=== PATIENT | male | born 1940 | race Caucasian/White ===

== ENCOUNTER → 2016-11-02 | Outpatient (CLI) | payer MEDICARE, BC ==
--- NOTE | 2016-11-02 10:26 | RAD ---
Renal ultrasound, 11/02/2016: History: Check post voiding residual urine in the bladder The right kidney measures 10.3 cm in length, while the left kidney measures 10.8 cm. There is no evidence of hydronephrosis or a renal mass. The renal parenchymal echogenicity is within normal limits. Limited views of the urinary bladder show no abnormality. Prevoiding views demonstrated a volume of approximately 116 cc. There is only a small amount of post voiding residual urine in the bladder estimated at 7 cc. IMPRESSION: 1. No significant renal abnormality is detected. 2. Minimal post voiding residual urine in the bladder.
== END | disposition home or self-care (01) ==
LOC: US 08:42
PROVIDERS: ATTEND Internal Medicine Nephrology
DX: R35.1 Nocturia (principal); R39.198 Other difficulties with micturition
CPT/HCPCS: 76770

== ENCOUNTER → 2017-02-28 | Outpatient (CLI) | payer MEDICARE, BC ==
--- NOTE | 2017-02-28 09:24 | RAD ---
Chest, 2 views, 02/28/2017: History: Productive cough, fever Comparison is made to a study from 06/20/2013. There has been a previous median sternotomy. A right-sided transvenous pacemaker has been inserted with 3 leads extending into the heart. The heart size and pulmonary vascularity are normal. There is calcific plaquing of the aorta. There is minimal linear atelectasis or scarring in the left base. No pulmonary consolidation is seen. There is no evidence of pleural fluid. IMPRESSION: 1. Interval insertion of a right-sided transvenous pacemaker. 2. Minimal left basilar linear atelectasis or scarring.
== END | disposition home or self-care (01) ==
LOC: DXRADRC 09:01
PROVIDERS: ATTEND Physician Assistant
DX: R50.9 Fever, unspecified (principal); R05 Cough; I70.0 Atherosclerosis of aorta; Z95.0 Presence of cardiac pacemaker
CPT/HCPCS: 71020

== ENCOUNTER → 2017-05-04 | Outpatient (CLI) | payer MEDICARE, BC ==
[2017-05-04 12:02] LABS: BASO % 1 % (0-3); EOS # 0.2 x10^3/uL (0.0-0.7); EOS % 5 % (0-3); HEMATOCRIT 28.7 % (39.0-53.0); HEMOGLOBIN 9.7 g/dL (13.0-17.5); LYMPH # 1.2 x10^3/uL (1.0-4.8); LYMPH % 24 % (24-48); MEAN CORPUSCULAR HEMOGLOBIN 34 pg (25-35); MEAN CORPUSCULAR HGB CONC 34 g/dL (31-37); MEAN CORPUSCULAR VOLUME 101 fL (79-100); MONO # 0.7 x10^3/uL (0.0-1.1); MONO % 14 % (0-9); NEUT # 2.7 x10^3uL (1.8-7.7); NEUT % 56 % (31-73); PLATELET COUNT 253 x10^3/uL (140-400); RED BLOOD COUNT 2.83 x10^6/uL (4.30-5.70); RED CELL DISTRIBUTION WIDTH 14.3 % (11.5-14.5); WHITE BLOOD COUNT 4.9 x10^3/uL (4.0-11.0)
[2017-05-04 12:08] LABS: BILIRUBIN,URINE NEG (NEG); CLARITY,URINE CLEAR; COLOR,URINE YELLOW; GLUCOSE,URINE NEG (NEG); NITRITE,URINE NEG (NEG); UROBILINOGEN,URINE 0.2 mg/dL (0.2 mg/dL)
[2017-05-04 12:21] LABS: ALBUMIN 3.6 g/dL (3.4-5.0); ALBUMIN/GLOBULIN RATIO 1.1 (1.0-1.7); CALCIUM 9.2 mg/dL (8.5-10.1); CREATININE 2.3 mg/dL (0.7-1.3); GFR 27.8; POTASSIUM 4.7 mmol/L (3.5-5.1); TOTAL BILIRUBIN 0.4 mg/dL (0.2-1.0)
[2017-05-04 22:07] LABS: HEMOGLOBIN A1C 6.2 % (4.8-5.6)
== END | disposition home or self-care (01) ==
LOC: LAB 11:15
PROVIDERS: ATTEND Physician Assistant Medical
DX: E11.9 Type 2 diabetes mellitus without complications (principal); I10 Essential (primary) hypertension; Z95.0 Presence of cardiac pacemaker
CPT/HCPCS: 36415; 80053; 81003; 83036; 85025

== ENCOUNTER → 2017-08-16 | Outpatient (CLI) | payer MEDICARE, BC ==
[2017-08-16 12:38] LABS: BASO % 1 % (0-3); EOS # 0.2 x10^3/uL (0.0-0.7); EOS % 4 % (0-3); HEMATOCRIT 28.4 % (39.0-53.0); HEMOGLOBIN 9.7 g/dL (13.0-17.5); LYMPH # 1.4 x10^3/uL (1.0-4.8); LYMPH % 28 % (24-48); MEAN CORPUSCULAR HEMOGLOBIN 34 pg (25-35); MEAN CORPUSCULAR HGB CONC 34 g/dL (31-37); MEAN CORPUSCULAR VOLUME 100 fL (79-100); MONO # 0.7 x10^3/uL (0.0-1.1); MONO % 15 % (0-9); NEUT # 2.7 x10^3uL (1.8-7.7); NEUT % 53 % (31-73); PLATELET COUNT 230 x10^3/uL (140-400); RED BLOOD COUNT 2.84 x10^6/uL (4.30-5.70); RED CELL DISTRIBUTION WIDTH 15.2 % (11.5-14.5)
[2017-08-16 13:00] LABS: CALCIUM 9.4 mg/dL (8.5-10.1); CREATININE 2.4 mg/dL (0.7-1.3); GFR 26.5; POTASSIUM 4.6 mmol/L (3.5-5.1)
[2017-08-19 11:29] LABS: HEMOGLOBIN A1C 6.6 % (4.8-5.6)
== END | disposition home or self-care (01) ==
LOC: LAB 12:00
PROVIDERS: ATTEND Physician Assistant Medical
DX: I13.0 Hypertensive heart and chronic kidney disease with heart failure and stage 1 through stage 4 chronic kidney disease, or unspecified chronic kidney disease (principal); E11.22 Type 2 diabetes mellitus with diabetic chronic kidney disease; N18.3 Chronic kidney disease, stage 3 (moderate); I50.9 Heart failure, unspecified
CPT/HCPCS: 36415; 80048; 83036; 85025

== ENCOUNTER → 2017-08-16 | Outpatient (CLI) | payer MEDICARE, BC ==
[2017-08-16 12:40] LABS: HEMATOCRIT 28.4 % (39.0-53.0); HEMOGLOBIN 9.7 g/dL (13.0-17.5)
[2017-08-16 12:54] LABS: ALBUMIN 3.5 g/dL (3.4-5.0); CALCIUM 9.4 mg/dL (8.5-10.1); CREATININE 2.4 mg/dL (0.7-1.3); GFR 26.5; MAGNESIUM 2.2 mg/dL (1.8-2.4); PHOSPHORUS 5.5 mg/dL (2.6-4.7); POTASSIUM 4.6 mmol/L (3.5-5.1)
[2017-08-17 03:17] LABS: UR CREATININE RD 20.9 mg/dL (Not Estab.); UR PROTEIN RD <4.0 mg/dL (Not Estab.)
[2017-08-17 07:16] LABS: CALCIUM PTH 9.7 mg/dL (8.6-10.2); CREATININE PTH 2.43 mg/dL (0.76-1.27); PTH INTACT 34 pg/mL (15-65)
== END | disposition home or self-care (01) ==
LOC: LAB 12:08
PROVIDERS: ATTEND Internal Medicine Nephrology
DX: I12.9 Hypertensive chronic kidney disease with stage 1 through stage 4 chronic kidney disease, or unspecified chronic kidney disease (principal); E11.22 Type 2 diabetes mellitus with diabetic chronic kidney disease; I13.0 Hypertensive heart and chronic kidney disease with heart failure and stage 1 through stage 4 chronic kidney disease, or unspecified chronic kidney disease; N18.3 Chronic kidney disease, stage 3 (moderate); I50.9 Heart failure, unspecified; Z95.0 Presence of cardiac pacemaker
CPT/HCPCS: 36415; 80069; 82570; 82728; 83540; 83550; 83735; 83970; 84156; 85014; 85018

== ENCOUNTER → 2017-11-11 | Outpatient (CLI) | payer MEDICARE, BC ==
[2017-09-23 11:06] VITALS: BP 157/78
--- NOTE | 2017-11-11 16:11 | RAD ---
CT UPPR EXTREMTY WO CONTRST RT Indication: Pain in shoulder. Pacemaker on right side Exposure: One or more of the following individualized dose reduction techniques were utilized for this examination: 1. Automated exposure control 2. Adjustment of the mA and/or kV according to patient size 3. Use of iterative reconstruction technique. Comparison: None are available. Contrast: None Acromioclavicular joint primary osteoarthritis with moderate undersurface osteophytes. Severe glenohumeral joint primary osteoarthritis. Severe narrowing of the anterior joint space. Subchondral cysts and marginal osteophytes. Mild bone hypertrophy and cystic changes at the greater tuberosity, likely due to chronic rotator cuff disease. Osteophytes encroach upon the bicipital groove. There is no evidence of an acute fracture or aggressive destructive bone lesion. No obvious acute soft tissue abnormality. Pacemaker device is partially seen. Cervical spine is barely seen, demonstrating degenerative change. IMPRESSION: 1. Severe glenohumeral joint primary osteoarthritis. 2. Acromioclavicular joint primary osteoarthritis. Electronically signed by: Da Castellanos MD (11/11/2017 4:08 PM) [facility]
== END | disposition home or self-care (01) ==
LOC: CT 08:17
PROVIDERS: ATTEND Anesthesiology Pain Medicine
DX: M19.011 Primary osteoarthritis, right shoulder (principal); M25.711 Osteophyte, right shoulder; I13.0 Hypertensive heart and chronic kidney disease with heart failure and stage 1 through stage 4 chronic kidney disease, or unspecified chronic kidney disease; E11.22 Type 2 diabetes mellitus with diabetic chronic kidney disease; I50.9 Heart failure, unspecified; N18.3 Chronic kidney disease, stage 3 (moderate); D63.1 Anemia in chronic kidney disease
CPT/HCPCS: 73200

== ENCOUNTER → 2018-05-13 | Outpatient (CLI) | payer MEDICARE, BC ==
[2017-09-23 11:06] VITALS: BP 157/78
--- NOTE | 2018-05-13 10:28 | RAD ---
Chest, 2 views, 05/13/2018: HISTORY: Cough Comparison is made to a study from 02/28/2017. There has been a previous median sternotomy. A right-sided transvenous pacing device remains in place with 3 leads extending into the heart. The heart size and pulmonary vascularity are normal. There is calcific plaquing of the aorta. There is minimal parenchymal scarring on the left. No acute infiltrate is seen. There is no evidence of pleural fluid. Mild spurring is present in the spine. IMPRESSION: No acute cardiopulmonary abnormality is detected. Electronically signed by: Helio Mohamud MD (05/13/2018 10:24 AM) [facility]
== END | disposition home or self-care (01) ==
LOC: RAD 09:54
PROVIDERS: ATTEND Physician Assistant Medical
DX: J40 Bronchitis, not specified as acute or chronic (principal); I70.0 Atherosclerosis of aorta; R91.8 Other nonspecific abnormal finding of lung field
CPT/HCPCS: 71046

== ENCOUNTER → 2018-05-30 | Outpatient (CLI) | payer MEDICARE, BC ==
[2017-09-23 11:06] VITALS: BP 157/78
--- NOTE | 2018-06-03 08:34 | RAD ---
DATE: 05/30/2018 4:00 PM EXAM: DIGITAL DIAGNOSTIC BILATERAL, BREAST BILATERAL HISTORY: Imaging evaluation of bilateral breast tenderness COMPARISON: None available Bilateral full field craniocaudal and mediolateral oblique images were obtained using digital technique. This study was interpreted with the benefit of Computerized Aided Detection (CAD ). Breast Density: The breast parenchyma is primarily fatty replaced. Breast parenchyma level density A. FINDINGS: Dense reticular and flame shaped retroareolar opacities are seen bilaterally. No suspicious masses, microcalcifications or architectural distortion is present to suggest malignancy in either breast. The visualized axillae are unremarkable. IMPRESSION: 1. Retroareolar opacities bilaterally are favored to represent gynecomastia. 2. No mammographic evidence of malignancy. Given the bilateral breast pain, dedicated ultrasound was performed Exam: Bilateral breast ultrasound TECHNIQUE: Targeted high resolution sonography of the region of clinical concern was performed. COMPARISON: Prior mammogram from 05/30/2018 FINDINGS: Bilateral retroareolar flame-shaped tissue is seen most consistent with gynecomastia. IMPRESSION: No sonographic evidence of malignancy. BI-RADS CATEGORY: 2 BENIGN FINDING(S) RECOMMENDED FOLLOW-UP: CLIN FOLLOW UP IMAGING CLINICALLY INDICATED Mammography is a sensitive method for finding small breast cancers, but it does not detect them all and is not a substitute for careful clinical examination. A negative mammogram does not negate a clinically suspicious finding and should not result in delay in biopsying a clinically suspicious abnormality. "Our facility is accredited by the [employer] Mammography Program." CHRISD
== END | disposition home or self-care (01) ==
LOC: MAMMO 13:50
PROVIDERS: ATTEND Physician Assistant Medical
DX: N64.4 Mastodynia (principal)
CPT/HCPCS: 76641; 77066

== ENCOUNTER → 2018-07-24 | Outpatient (CLI) | payer MEDICARE, BC ==
[2017-09-23 11:06] VITALS: BP 157/78
[~2018-07-24] MED LIST: BARIUM SULFATE 60% 355 ML SUSP PO ONE; BARIUM SULFATE 98% 135 ML SUSP PO ONE; SIMETHICONE/SOD BICARB/CITRIC ACID PACKET. PO ONE
--- NOTE | 2018-07-24 15:32 | RAD ---
ESOPHAGRAM 07/24/2018. Reason for study: Coughing with food getting stuck. Comparison studies: None. Technique: Esophagram was performed utilizing double contrast upright examination, single contrast prone examination, and cine evaluation of cervical esophageal swallow function. Fluoroscopy time: 1.6 minutes Images: 14 Findings: Right chest wall cardiac device is identified with leads projecting over the right atrium and right ventricle. Median sternotomy changes are present. Cardiomediastinal silhouette is within normal limits. Atherosclerotic changes of the thoracic aorta are present. Moderate degenerative changes of the right glenohumeral joint are noted. No pleural effusions. No pulmonary vascular congestion or pneumothorax. Barium swallow was performed without difficulty. Esophageal peristalsis and motility were normal. No mucosal abnormalities. No gastroesophageal reflux or hiatal hernia. There is a 2.5 cm esophageal diverticulum arising from the right lateral esophageal wall at the level of the mid thoracic esophagus there is prominence of the cricopharyngeus muscle which results in greater than 50 percent stenosis of the esophageal lumen. Fundus of the stomach was unremarkable. IMPRESSION: 1. 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 Consideration may be given for a pulsion diverticulum. 2. 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 Electronically signed by: Machelle Scott MD (07/24/2018 3:29 PM) [id number]
== END | disposition home or self-care (01) ==
LOC: RAD 08:10
PROVIDERS: ATTEND Internal Medicine Gastroenterology
DX: K22.5 Diverticulum of esophagus, acquired (principal); K22.2 Esophageal obstruction; I70.0 Atherosclerosis of aorta
CPT/HCPCS: 74220

== ENCOUNTER → 2018-09-24 | Outpatient (CLI) | payer MEDICARE, BC ==
[2017-09-23 11:06] VITALS: BP 157/78
[2018-09-24 16:24] LABS: HEMATOCRIT 30.9 % (39.0-53.0); HEMOGLOBIN 10.3 g/dL (13.0-17.5)
[2018-09-24 16:34] LABS: ALBUMIN 3.6 g/dL (3.4-5.0); CALCIUM 9.2 mg/dL (8.5-10.1); CREATININE 2.4 mg/dL (0.7-1.3); GFR 26.4; PHOSPHORUS 5.4 mg/dL (2.6-4.7); POTASSIUM 4.7 mmol/L (3.5-5.1)
== END | disposition home or self-care (01) ==
LOC: LAB 16:03
PROVIDERS: ATTEND Internal Medicine Nephrology
DX: I13.0 Hypertensive heart and chronic kidney disease with heart failure and stage 1 through stage 4 chronic kidney disease, or unspecified chronic kidney disease (principal); E11.29 Type 2 diabetes mellitus with other diabetic kidney complication; N18.3 Chronic kidney disease, stage 3 (moderate); I50.9 Heart failure, unspecified; D64.9 Anemia, unspecified; Z68.34 Body mass index [BMI] 34.0-34.9, adult
CPT/HCPCS: 36415; 80069; 82728; 83540; 83550; 85014; 85018

== ENCOUNTER → 2019-03-23 | Outpatient (CLI) | payer MEDICARE, BC ==
[2017-09-23 11:06] VITALS: BP 157/78
[2019-03-23 11:52] LABS: CALCIUM 9.3 mg/dL (8.5-10.1); CREATININE 2.1 mg/dL (0.7-1.3); GFR 30.7; POTASSIUM 4.4 mmol/L (3.5-5.1)
== END | disposition home or self-care (01) ==
LOC: LAB 07:56
PROVIDERS: ATTEND Internal Medicine Cardiovascular Disease
DX: I25.5 Ischemic cardiomyopathy (principal); I50.20 Unspecified systolic (congestive) heart failure; I25.810 Atherosclerosis of coronary artery bypass graft(s) without angina pectoris; N18.3 Chronic kidney disease, stage 3 (moderate); M79.89 Other specified soft tissue disorders
CPT/HCPCS: 36415; 80048; 83880

== ENCOUNTER → 2020-01-14 | Outpatient (CLI) | payer MEDICARE ==
[2017-09-23 11:06] VITALS: BP 157/78
[2020-01-14 15:34] LABS: CALCIUM 9.3 mg/dL (8.5-10.1); CREATININE 2.7 mg/dL (0.7-1.3); GFR 22.9; POTASSIUM 4.8 mmol/L (3.5-5.1)
== END | disposition home or self-care (01) ==
LOC: LAB 14:44
PROVIDERS: ATTEND Internal Medicine Cardiovascular Disease
DX: I25.5 Ischemic cardiomyopathy (principal)
CPT/HCPCS: 36415; 80048

== ENCOUNTER → 2020-02-09 | Outpatient (CLI) | payer MEDICARE ==
[2017-09-23 11:06] VITALS: BP 157/78
[2020-02-09 09:24] LABS: ALBUMIN 3.4 g/dL (3.4-5.0); ALBUMIN/GLOBULIN RATIO 1.1 (1.0-1.7); CALCIUM 8.9 mg/dL (8.5-10.1); CREATININE 2.3 mg/dL (0.7-1.3); GFR 27.6; POTASSIUM 4.7 mmol/L (3.5-5.1); TOTAL BILIRUBIN 0.5 mg/dL (0.2-1.0); TOTAL PROTEIN 6.6 g/dL (6.4-8.2)
== END ==
LOC: LAB 08:15
PROVIDERS: ATTEND Internal Medicine Cardiovascular Disease
DX: I50.20 Unspecified systolic (congestive) heart failure (principal)
CPT/HCPCS: 36415; 80053

== ENCOUNTER → 2020-02-09 | Outpatient (CLI) | payer MEDICARE ==
[2017-09-23 11:06] VITALS: BP 157/78
== END ==
LOC: LAB 08:23
PROVIDERS: ATTEND Internal Medicine Cardiovascular Disease
DX: I25.810 Atherosclerosis of coronary artery bypass graft(s) without angina pectoris (principal); N18.30 Chronic kidney disease, stage 3 unspecified; I25.5 Ischemic cardiomyopathy; I50.20 Unspecified systolic (congestive) heart failure; M79.89 Other specified soft tissue disorders
CPT/HCPCS: 36415; 83880

== ENCOUNTER 2020-03-15 23:21 | Emergency (ER) | payer MEDICARE ==
[~2020-03-15] VITALS: Ht 177.8 cm; Wt 104.0 kg
[2020-03-15 23:21] VITALS: BP 160/72
--- NOTE | 2020-03-16 00:13 | PHYS DOC ---
Past History Past Medical History: CHF, Diabetes, High Cholesterol, Heart Disease, Hypertension, Other Additional Past Medical Histor: kidney failure Past Surgical History: Hip Replacement, Knee Replacement, Pacemaker, Tonsillectomy, Other Additional Past Surgical Histo: defib/pacemaker, hernia repair, quad bypass Alcohol Use: None General Adult EDM: Chief Complaint: WOUND CHECK HPI: HPI: 79-year-old male presents with bleeding from his scalp. The patient had a skin cancer removed several days ago and has orin in his head. He was supposed to have them removed in a couple days. He was taking a shower and he started to have blood running down his face. They were unable to get the bleeding to stop at home. The patient is on Eliquis. He denies dizziness, syncope, shortness of breath. He has no other complaints at this time. Review of Systems: Review of Systems: Constitutional: Denies fever or chills Eyes: Denies change in visual acuity HENT: Denies nasal congestion or sore throat Respiratory: Denies cough or shortness of breath Cardiovascular: Denies chest pain or edema GI: Denies abdominal pain, nausea, vomiting, bloody stools or diarrhea : Denies dysuria Musculoskeletal: Denies back pain or joint pain Integument: Bleeding from scalp Neurologic: Denies headache, focal weakness or sensory changes Endocrine: Denies polyuria or polydipsia Lymphatic: Denies swollen glands Psychiatric: Denies depression or anxiety Allergies: Allergies: Allergies Coded Allergies Type Severity Reaction Last Updated Verified No Known Drug Allergies 09/16/17 No Physical Exam: PE: Constitutional: Well developed, well nourished, no acute distress, non-toxic appearance. [] HENT: Normocephalic, atraumatic, bilateral external ears normal, oropharynx moist, no oral exudates, nose normal. [] Eyes: PERRLA, EOMI, conjunctiva normal, no discharge. [] Neck: Normal range of motion, no tenderness, supple, no stridor. [] Cardiovascular:Heart rate regular rhythm, no murmur [] Lungs & Thorax: Bilateral breath sounds clear to auscultation [] Abdomen: Bowel sounds normal, soft, no tenderness, no masses, no pulsatile masses. [] Skin: [place] in the superior scalp wound with good healing over 95% of the area. Small bleed near the middle of the wound. [] Back: No tenderness, no CVA tenderness. [] Extremities: No tenderness, no cyanosis, no clubbing, ROM intact, no edema. [] Neurologic: Alert and oriented X 3, normal motor function, normal sensory function, no focal deficits noted. [] Psychologic: Affect normal, judgement normal, mood normal. [] Current Patient Data: Vital Signs: Vital Signs Date Time Temp Pulse Resp B/P (MAP) Pulse Ox O2 Delivery O2 Flow Rate FiO2 03/15/20 23:21 98.1 80 20 160/72 (101) 98 Room Air EKG: EKG: [] Radiology/Procedures: Radiology/Procedures: [] Heart Score: Risk Factors: Risk Factors: DM, Current or recent (<one month) smoker, HTN, HLP, family history of CAD, obesity. Risk Scores: Score 0 - 3: 2.5% MACE over next 6 weeks - Discharge Home Score 4 - 6: 20.3% MACE over next 6 weeks - Admit for Clinical Observation Score 7 - 10: 72.7% MACE over next 6 weeks - Early Invasive Strategies Course & Med Decision Making: Course & Med Decision Making Pertinent Labs and Imaging studies reviewed. (See chart for details) We have attempted to stop the bleeding with compression. We were able to control the bleeding. I will not attempt to take any of the orin at this time. He is stable for discharge. [] Dragon Disclaimer: Dragon Disclaimer: This electronic medical record was generated, in whole or in part, using a voice recognition dictation system. Departure Departure: Impression: Primary Impression: Bleeding from wound Disposition: 01 DC HOME SELF CARE/HOMELESS Condition: IMPROVED Referrals: WEI CHOPRA (PCP) Patient Instructions: Open Wound, Head, [id number] JOSE CHRISTINE DO Mar 16, 2020 00:12
== END 2020-03-16 00:30 | disposition home or self-care (01) ==
LOC: ER 23:21
DX: L76.22 Postprocedural hemorrhage of skin and subcutaneous tissue following other procedure (principal); E11.9 Type 2 diabetes mellitus without complications; E78.00 Pure hypercholesterolemia, unspecified; I13.0 Hypertensive heart and chronic kidney disease with heart failure and stage 1 through stage 4 chronic kidney disease, or unspecified chronic kidney disease; E11.22 Type 2 diabetes mellitus with diabetic chronic kidney disease; N18.9 Chronic kidney disease, unspecified; I50.9 Heart failure, unspecified; Z95.0 Presence of cardiac pacemaker; Z79.01 Long term (current) use of anticoagulants
CPT/HCPCS: 99281

== ENCOUNTER → 2020-10-25 | Outpatient (CLI) | payer MEDICARE ==
--- NOTE | 2020-10-25 17:13 | RAD ---
EXAM: LEFT WRIST 3 VIEWS. HISTORY: Left wrist pain and numbness. COMPARISON: None. FINDINGS: No fractures are identified. Alignment is maintained. First carpometacarpal osteoarthritis is moderate. Small osteophytes are consistent with mild radiocarpal osteoarthritis. There are diffuse atherosclerotic calcifications. IMPRESSION: 1. No fracture. Osteoarthritis as above. Electronically signed by: Matheus Seugra MD (10/25/2020 5:11 PM) [id number]
== END ==
LOC: RAD 12:00
PROVIDERS: ATTEND Physician Assistant Medical
DX: M18.9 Osteoarthritis of first carpometacarpal joint, unspecified (principal); M25.732 Osteophyte, left wrist; I70.90 Unspecified atherosclerosis
CPT/HCPCS: 73110

== ENCOUNTER 2021-06-19 08:11 | Emergency (ER) | payer MEDICARE ==
[~2021-06-19] VITALS: Ht 177.8 cm; Wt 92.0 kg
[2021-06-19] MEDS ORDERED: IV RINGERS SOLUTION,LACTATED 1,000 ML IV ONE (09:15)
[2021-06-19] MEDS ORDERED: ONDANSETRON PF 4 MG/2 ML VIAL. IVP ONE (09:15)
[2021-06-19] MEDS ORDERED: IOHEXOL 300 MG/ML 75 ML VIAL. IV ONE (09:15)
[2021-06-19 09:32] LABS: BASO % 1 % (0-3); EOS # 0.1 x10^3/uL (0.0-0.7); EOS % 1 % (0-3); HEMATOCRIT 37.3 % (39.0-53.0); HEMOGLOBIN 12.3 g/dL (13.0-17.5); LYMPH # 0.9 x10^3/uL (1.0-4.8); LYMPH % 17 % (24-48); MEAN CORPUSCULAR HEMOGLOBIN 34 pg (25-35); MEAN CORPUSCULAR HGB CONC 33 g/dL (31-37); MEAN CORPUSCULAR VOLUME 104 fL (79-100); MONO # 0.7 x10^3/uL (0.0-1.1); MONO % 14 % (0-9); NEUT # 3.5 x10^3uL (1.8-7.7); NEUT % 67 % (31-73); PLATELET COUNT 219 x10^3/uL (140-400); RED CELL DISTRIBUTION WIDTH 15.2 % (11.5-14.5); WHITE BLOOD COUNT 5.2 x10^3/uL (4.0-11.0)
--- NOTE | 2021-06-19 09:36 | PHYS DOC ---
Past History Past Medical History: CHF, Diabetes, High Cholesterol, Heart Disease, Hypertension, Renal Failure, Other Past Surgical History: Coronary Bypass Surgery, Hip Replacement, Knee Replacement, Pacemaker, Tonsillectomy, Other Additional Past Surgical Histo: defib/pacemaker, hernia repair, quad bypass Smoking: Non-smoker Alcohol Use: None Drug Use: None General Adult EDM: Chief Complaint: NAUSEA/VOMITING/DIARRHEA HPI: HPI: Patient is an 80 year old male who presents with one week history of vomiting. He tried taking PeptoBismol at home without symptom relief. Patient states any time he attempts to eat or drink, he immediately throws up. He reports associated unintentional weight loss of 20lbs in the past 3 weeks. Patient denies fever, chills, weakness, abdominal pain, diarrhea, constipation, bloody emesis or stools. Review of Systems: Review of Systems: Constitutional: See HPI Eyes: Denies change in visual acuity, visual field deficits or discharge HENT: Denies ear pain, nasal congestion or sore throat Respiratory: Denies cough or shortness of breath Cardiovascular: Denies chest pain, palpitations or edema GI: See HPI : Denies dysuria or hematuria Musculoskeletal: Denies back pain or joint pain Integument: Denies rash or other skin lesion Neurologic: Denies headache, focal weakness or sensory changes Current Medications: Current Meds: Current Medications Medications (Trade) Dose Ordered Sig/Kian Start Time Stop Time Status Last Admin Dose Admin Iohexol (Omnipaque 300 Mg/ml) 75 ml 1X ONCE 06/19/21 09:15 06/19/21 09:20 DC Lactated Ringer's 1,000 ml @ 1,000 mls/hr 1X ONCE 06/19/21 09:15 06/19/21 10:14 Ondansetron HCl (Zofran) 4 mg 1X ONCE 06/19/21 09:15 06/19/21 09:20 DC 06/19/21 09:19 4 MG Allergies: Allergies: Allergies Coded Allergies Type Severity Reaction Last Updated Verified No Known Drug Allergies 06/19/21 No Physical Exam: PE: Constitutional: Well developed, well nourished, no acute distress, non-toxic appearance. HENT: Normocephalic, atraumatic, bilateral external ears normal, nose normal. Eyes: EOMI, conjunctiva normal, no discharge. Neck: Normal range of motion, no stridor. Abdomen: Bowel sounds normal, soft, no tenderness, no masses, no pulsatile masses. Skin: Warm, dry, no erythema, no rash. Diffuse ecchymosis on upper extremities. Extremities: No tenderness, no cyanosis, no clubbing, ROM intact, no edema. Neurologic: Alert and oriented x4, no focal deficits noted. Current Patient Data: Labs: Laboratory Tests Test 06/19/21 09:00 06/19/21 11:45 White Blood Count 5.2 x10^3/uL (4.0-11.0) Red Blood Count 3.60 x10^6/uL (4.30-5.70) Hemoglobin 12.3 g/dL (13.0-17.5) Hematocrit 37.3 % (39.0-53.0) Mean Corpuscular Volume 104 fL (79-100) Mean Corpuscular Hemoglobin 34 pg (25-35) Mean Corpuscular Hemoglobin Concent 33 g/dL (31-37) Red Cell Distribution Width 15.2 % (11.5-14.5) Platelet Count 219 x10^3/uL (140-400) Neutrophils (%) (Auto) 67 % (31-73) Lymphocytes (%) (Auto) 17 % (24-48) Monocytes (%) (Auto) 14 % (0-9) Eosinophils (%) (Auto) 1 % (0-3) Basophils (%) (Auto) 1 % (0-3) Neutrophils # (Auto) 3.5 x10^3uL (1.8-7.7) Lymphocytes # (Auto) 0.9 x10^3/uL (1.0-4.8) Monocytes # (Auto) 0.7 x10^3/uL (0.0-1.1) Eosinophils # (Auto) 0.1 x10^3/uL (0.0-0.7) Basophils # (Auto) 0.0 x10^3/uL (0.0-0.2) Sodium Level 137 mmol/L (136-145) Potassium Level 3.7 mmol/L (3.5-5.1) Chloride Level 100 mmol/L (98-107) Carbon Dioxide Level 27 mmol/L (21-32) Anion Gap 10 (6-14) Blood Urea Nitrogen 29 mg/dL (8-26) Creatinine 2.8 mg/dL (0.7-1.3) Estimated GFR (Cockcroft-Gault) 21.9 BUN/Creatinine Ratio 10 (6-20) Glucose Level 174 mg/dL (70-99) Calcium Level 9.3 mg/dL (8.5-10.1) Magnesium Level 2.2 mg/dL (1.8-2.4) Total Bilirubin 0.9 mg/dL (0.2-1.0) Aspartate Amino Transf (AST/SGOT) 26 U/L (15-37) Alanine Aminotransferase (ALT/SGPT) 22 U/L (16-63) Alkaline Phosphatase 65 U/L (46-116) Total Protein 7.2 g/dL (6.4-8.2) Albumin 3.8 g/dL (3.4-5.0) Albumin/Globulin Ratio 1.1 (1.0-1.7) Lipase 286 U/L (73-393) Urine Collection Type Clean catch Urine Color Yellow Urine Clarity Clear Urine pH 5.5 Urine Specific [place] 1.025 Urine Protein 30 mg/dl (NEG-TRACE) Urine Glucose (UA) Neg mg/dL (NEG) Urine Ketones (Stick) Neg mg/dL (NEG) Urine Blood Trace (NEG) Urine Nitrite Neg (NEG) Urine Bilirubin Neg (NEG) Urine Urobilinogen Dipstick 0.2 mg/dL (0.2 mg/dL) Urine Leukocyte Esterase Neg (NEG) Urine RBC Occ /HPF (0-2) Urine WBC 0 /HPF (0-4) Urine Squamous Epithelial Cells Occ /LPF Urine Bacteria 0 /HPF (0-FEW) Urine Hyaline Casts Mod /HPF Urine Granular Casts Mod /HPF Vital Signs: VS - Last 72 Hours, by Label Date Time Temp Pulse Resp B/P (MAP) Pulse Ox O2 Delivery O2 Flow Rate FiO2 06/19/21 08:40 97.7 64 18 135/60 (85) 97 Room Air Radiology/Procedures: Radiology/Procedures: PROCEDURE: CT ABDOMEN PELVIS WO CONTRAST Exam: CT abdomen/pelvis without intravenous contrast Indication: Nausea vomiting and diarrhea Comparison: None Technique: Helical CT imaging performed of the abdomen and pelvis without the use of intravenous contrast. Sagittal and coronal reformats were obtained. One or more of the following individualized dose reduction techniques were utilized for this examination: 1. Automated exposure control 2. Adjustment of the mA and/or kV according to patient size 3. Use of iterative reconstruction technique. Findings: Inherently limited evaluation without intravenous contrast. Lower chest: The heart is normal in size. There are pacemaker/AICD leads and surgical changes of CABG. There is suture material in the left lower lobe with adjacent subpleural atelectasis. Calcified granuloma in the right lower lobe. Liver: Normal noncontrast appearance of the liver. Gallbladder/Biliary Tree: Cholelithiasis with multiple small stones and sludge in the gallbladder. Bile ducts are normal. Pancreas: Normal. Spleen: No splenomegaly. There are calcified splenic granulomas. Adrenal Glands: Normal. Kidneys/Ureters/Bladder: Kidneys are normal in size. There is left nephrolithiasis with a nonobstructing 4 mm calculus. No hydronephrosis. Ureters are unremarkable. The bladder is decompressed and partially obscured by streak artifact from a hip prosthesis. Reproductive Organs: Prostate gland is unremarkable. Stomach, small bowel, and colon: The stomach and small bowel are normal. There is sigmoid diverticulosis without acute diverticulitis. The colon is otherwise unremarkable. The appendix is normal. Vasculature: Abdominal aorta is normal in caliber. There is moderate calcified aortoiliac atherosclerosis. Lymph Nodes: No lymphadenopathy. Peritoneum and retroperitoneum: No free fluid or free air. Bones: The bones are diffusely demineralized. 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 Mild degenerative disc disease and mild dextroscoliosis of the lumbar spine. There is severe degenerative joint disease of the left hip. Miscellaneous: None IMPRESSION: 1. No acute abnormality in the abdomen and pelvis. 2. Sigmoid diverticulosis without acute diverticulitis. 3. Nonobstructing left nephrolithiasis. 4. Cholelithiasis and sludge in the gallbladder. Electronically signed by: Bettina Jade MD (06/19/2021 10:25 AM) [id number] Heart Score: C/O Chest Pain: No Course & Med Decision Making: Course & Med Decision Making Pertinent Labs and Imaging studies reviewed. (See chart for details) Patient is an 80-year-old male who presents with 1 week history of nausea and vomiting, with associated anorexia for a few weeks. Patient states he tested positive for Covid about 1 month ago. Work-up today will include labs, CT abdomen pelvis plain, urinalysis. Imaging reveals a 4 mm nonobstructing kidney stone. Urinalysis does not show infection. Patient nausea/vomiting is much improved with Zofran. Patient was able to keep Gatorade down here in the department. Patient will be discharged home with electronic prescription for Zofran ODT. Return precautions were provided. Patient understands and is agreeable to discharge plan. Dragon Disclaimer: Dragon Disclaimer: This electronic medical record was generated, in whole or in part, using a voice recognition dictation system. Departure Departure: Impression: Primary Impression: Nausea & vomiting Qualified Codes: R11.2 - Nausea with vomiting, unspecified Disposition: HOME / SELF CARE / HOMELESS Condition: IMPROVED Referrals: WEI CHOPRA (PCP) Patient Instructions: Nausea and Vomiting, [id number] Additional Instructions: EMERGENCY DEPARTMENT GENERAL DISCHARGE INSTRUCTIONS Thank you for coming to [facility] (ED) today and trusting us with you care. We trust that you had a positive experience in our Emergency Department. If you wish to speak to the department management, you may call the director at [phone]. YOUR FOLLOW UP INSTRUCTIONS ARE FOLLOWS: 1. Follow up with your primary care doctor. If you do not have a primary doctor, please ask for a resource list of physicians or clinics that may be able to assist you with follow up care. 2. The emergency provider has interpreted your imaging studies, if any were ordered. The radiology child protective services specialist also reviewed them. If there is a change in the findings, you will be notified in 48 hours when at all possible. 3. If a lab test or culture has been done, your results will be reviewed and you will be notified if you need a change in treatment. 4. Follow instructions verbalized to you and refer to the printouts if needed. ADDITIONAL INSTRUCTIONS AND INFORMATION: 1. Your care today has been supervised by a physician who is specially trained in emergency care. Many problems require more than one evaluation for a comp lete diagnosis and treatment. We recommend that you schedule your follow up appointment as recommended to ensure complete treatment of you illness or injury. If you are unable to obtain follow up care and continue to have a problem, or if your condition worsens, we recommend that you return to the ED. 2. We are not able to safely determine your condition over the phone nor are we able to give sound medical advice over the phone. For these safety reasons, if you call for medical advice we will ask you to come to the ED for further evaluation. 3. If you have any questions regarding these discharge instructions please call the ED at [phone]. SAFETY INFORMATION: In the interest of safety, wellness, and injury prevention; we encourage you to wear your seat belt, if you smoke; quite smoking, and we encourage family to use a protective helmet for bicycling and other sporting events that present an increased risk for head injury. IF YOUR SYMPTOMS WORSEN OR NEW SYMPTOMS DEVELOP, OR YOU HAVE CONCERNS ABOUT YOUR CONDITION; OR IF YOUR CONDITION WORSENS WHILE YOU ARE WAITING FOR YOUR FOLLOW UP APPOINTMENT; EITHER CONTACT YOUR PRIMARY CARE DOCTOR, THE PHYSICIAN WHOSE NAME AND NUMBER YOU WERE GIVEN, OR RETURN TO THE ED IMMEDIATELY. Scripts Ondansetron (ONDANSETRON ODT) 4 Mg Tab.rapdis 1 TAB PO PRN Q6-8HRS for n.v, #20 TAB Prov: JESUS LUCIO 06/19/21 JESUS LUCIO Jun 19, 2021 09:36
[2021-06-19 09:40] LABS: CALCIUM 9.3 mg/dL (8.5-10.1); CREATININE 2.8 mg/dL (0.7-1.3); GFR 21.9; POTASSIUM 3.7 mmol/L (3.5-5.1)
[2021-06-19 09:46] LABS: ALBUMIN 3.8 g/dL (3.4-5.0); ALBUMIN/GLOBULIN RATIO 1.1 (1.0-1.7); MAGNESIUM 2.2 mg/dL (1.8-2.4); TOTAL BILIRUBIN 0.9 mg/dL (0.2-1.0); TOTAL PROTEIN 7.2 g/dL (6.4-8.2)
--- NOTE | 2021-06-19 10:27 | RAD ---
Exam: CT abdomen/pelvis without intravenous contrast Indication: Nausea vomiting and diarrhea Comparison: None Technique: Helical CT imaging performed of the abdomen and pelvis without the use of intravenous cont rast. Sagittal and coronal reformats were obtained. One or more of the following individualized dose reduction techniques were utilized for this examinat ion: 1. Automated exposure control 2. Adjustment of the mA and/or kV according to patient size 3. Use of iterative reconstruction technique. Findings: Inherently limited evaluation without intravenous contrast. Lower chest: The heart is normal in size. There are pacemaker/AICD leads and surgical changes of CABG . There is suture material in the left lower lobe with adjacent subpleural atelectasis. Calcified gra nuloma in the right lower lobe. Liver: Normal noncontrast appearance of the liver. Gallbladder/Biliary Tree: Cholelithiasis with multiple small stones and sludge in the gallbladder. Bi le ducts are normal. Pancreas: Normal. Spleen: No splenomegaly. There are calcified splenic granulomas. Adrenal Glands: Normal. Kidneys/Ureters/Bladder: Kidneys are normal in size. There is left nephrolithiasis with a nonobstruct ing 4 mm calculus. No hydronephrosis. Ureters are unremarkable. The bladder is decompressed and parti ally obscured by streak artifact from a hip prosthesis. Reproductive Organs: Prostate gland is unremarkable. Stomach, small bowel, and colon: The stomach and small bowel are normal. There is sigmoid diverticulo sis without acute diverticulitis. The colon is otherwise unremarkable. The appendix is normal. Vasculature: Abdominal aorta is normal in caliber. There is moderate calcified aortoiliac atheroscler osis. Lymph Nodes: No lymphadenopathy. Peritoneum and retroperitoneum: No free fluid or free air. Bones: The bones are diffusely demineralized. 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 Mild degenerativ e disc disease and mild dextroscoliosis of the lumbar spine. 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 Miscellaneous: None IMPRESSION: 1. No acute abnormality in the abdomen and pelvis. 2. Sigmoid diverticulosis without acute diverticulitis. 3. Nonobstructing left nephrolithiasis. 4. Cholelithiasis and sludge in the gallbladder. Electronically signed by: Bettina Jade MD (06/19/2021 10:25 AM) [id number]
[2021-06-19 12:50] LABS: BACTERIA,URINE 0 /HPF (0-FEW); CLARITY,URINE CLEAR; COLOR,URINE YELLOW; GLUCOSE,URINE NEG (NEG); GRANULAR CASTS,URINE MOD /HPF; HYALINE CASTS, URINE MOD /HPF; NITRITE,URINE NEG (NEG); RBC,URINE OCC /HPF (0-2); SQUAMOUS EPITHELIAL CELL,UR OCC /LPF; UROBILINOGEN,URINE 0.2 mg/dL (0.2 mg/dL); WBC,URINE 0 /HPF (0-4)
[2021-06-19 13:30] VITALS: BP 137/77
[2021-06-19] MEDS ORDERED: ONDA4TAB12 PO (13:30)
== END 2021-06-19 13:40 | disposition home or self-care (01) ==
LOC: ER 08:11
DX: R11.2 Nausea with vomiting, unspecified (principal); I13.0 Hypertensive heart and chronic kidney disease with heart failure and stage 1 through stage 4 chronic kidney disease, or unspecified chronic kidney disease; E11.22 Type 2 diabetes mellitus with diabetic chronic kidney disease; N18.9 Chronic kidney disease, unspecified; I50.9 Heart failure, unspecified; E78.00 Pure hypercholesterolemia, unspecified; Z95.1 Presence of aortocoronary bypass graft; Z95.0 Presence of cardiac pacemaker
CPT/HCPCS: 36415; 74176; 80053; 81001; 83690; 83735; 85025; 96361; 96374; 99285; J2405; J7120

== ENCOUNTER → 2021-08-14 | Outpatient (CLI) | payer MEDICARE ==
[~2021-08-14] MED LIST changes: -BARIUM SULFATE 60% 355 ML SUSP PO ONE; -BARIUM SULFATE 98% 135 ML SUSP PO ONE; +ONDA4TAB12 PO; -SIMETHICONE/SOD BICARB/CITRIC ACID PACKET. PO ONE
--- NOTE | 2021-08-14 16:34 | RAD ---
EXAM: XR CHEST 1V, XR ABDOMEN 1V 08/14/2021 2:51 PM CLINICAL INDICATION: Nausea, vomiting, abdominal pain, chest pain COMPARISON: Chest radiograph 07/24/2018. CT abdomen pelvis 06/19/2021 TECHNIQUE: AP view of the chest. AP supine view the abdomen. FINDINGS: CHEST: There are changes of median sternotomy. The pacemaker/AICD is unchanged. The heart is normal i n size. Lungs well expanded and clear. No pleural effusion or pneumothorax. ABDOMEN: Bowel gas pattern is nonspecific and nonobstructive. Moderate stool. Possible 3 mm calculus in the left kidney. There is lumbar scoliosis, degenerative disc disease and facet arthrosis. Moderat e to severe left hip joint space narrowing. IMPRESSION: 1. No acute cardiopulmonary abnormality. 2. No small bowel obstruction. 3. Probable left nephrolithiasis. Electronically signed by: Bettina Jade MD (08/14/2021 4:32 PM) [id number]
== END ==
LOC: RAD 14:47
PROVIDERS: ATTEND Physician Assistant Medical
DX: K40.90 Unilateral inguinal hernia, without obstruction or gangrene, not specified as recurrent (principal); R11.2 Nausea with vomiting, unspecified; M51.36 Other intervertebral disc degeneration, lumbar region; M41.86 Other forms of scoliosis, lumbar region; M47.816 Spondylosis without myelopathy or radiculopathy, lumbar region
CPT/HCPCS: 71045; 74018

== ENCOUNTER → 2021-09-19 | Outpatient (CLI) | payer MEDICARE ==
[2021-09-19 13:35] LABS: HEMATOCRIT 31.5 % (39.0-53.0); HEMOGLOBIN 10.6 g/dL (13.0-17.5)
== END ==
LOC: LAB 11:48
PROVIDERS: ATTEND Internal Medicine Nephrology
DX: N18.4 Chronic kidney disease, stage 4 (severe) (principal); D63.1 Anemia in chronic kidney disease
CPT/HCPCS: 36415; 82728; 83540; 83550; 85014; 85018